=== PATIENT | male | born 2000 | race Caucasian/White ===

== ENCOUNTER 2019-10-21 21:41 | Emergency (ER) | payer MEDICAID ==
[~2019-10-21] VITALS: Ht 180.3 cm; Wt 95.5 kg
[2019-10-21 21:42] VITALS: BP 144/87; Ht 180.3 cm; Wt 95.5 kg
[2019-10-21] MEDS ORDERED: LEXAPRO5 MG PO (21:44)
== END 2019-10-21 22:06 | disposition left against medical advice (07) ==
LOC: D.ER 21:41
DX: R55 Syncope and collapse (principal); R42 Dizziness and giddiness